=== PATIENT | male | born 1975 ===

== ENCOUNTER 2023-01-14 10:22 | Day surgery (SDC) | payer OTHER ==
[2023-01-14] MEDS ORDERED: COLACE100 MG PO (15:19)
[2023-01-14] MEDS ORDERED: NEURONTIN300 MG PO (15:19)
[2023-01-14] MEDS ORDERED: PERCOCET 5-3251 EACH PO (15:19)
== END 2023-01-14 17:50 | disposition home or self-care (01) ==
LOC: CIR.AMB 10:22
PROVIDERS: ATTEND Surgery
DX: K62.5 Hemorrhage of anus and rectum (principal); K64.2 Third degree hemorrhoids; K64.8 Other hemorrhoids; K64.4 Residual hemorrhoidal skin tags; K62.89 Other specified diseases of anus and rectum; Z20.822 Contact with and (suspected) exposure to COVID-19